=== PATIENT | female | born 1950 | race Caucasian/White ===

== ENCOUNTER → 2016-11-26 | Outpatient (CLI) | payer MEDICARE, OTHER ==
--- NOTE | 2016-11-26 12:27 | REPMRS ---
Patient History The patient states she had a clinical breast exam in October 2016. Patient is postmenopausal. Family history of prostate cancer in father at age 62 and unknown cancer in maternal aunt at age 60. Digital Mammo Screening Bilat: November 26, 2016 - Exam #: [id number] Bilateral CC and MLO view(s) were taken. Technologist: Racheal Curran, Technologist Prior study comparison: October 21, 2015, bilateral digital mammo screening bilat performed at [facility]. October 08, 2014, bilateral digital mammo screening bilat performed at [facility]. September 25, 2013, bilateral digital mammo screening bilat performed at [facility]. FINDINGS: There are scattered fibroglandular densities. There has been no change in the appearance of the mammogram from the prior studies. There is a mild amount of scattered fibroglandular density which is fairly symmetric. There is no interval development of dominant mass, architectural distortion, or clustered microcalcification suggestive of malignancy. ASSESSMENT: BI-RADS/ACR category 1 mammogram. Negative. Recommendation Routine screening mammogram in 1 year (for women over age 40). This mammogram was interpreted with the aid of an FDA-approved computer-aided dectection system. Electronically Signed By: Manny Cabrera MD 11/26/16 1150
== END ==
LOC: M RAD 10:17
PROVIDERS: ATTEND Internal Medicine
DX: Z12.31 Encounter for screening mammogram for malignant neoplasm of breast (principal)

== ENCOUNTER → 2017-12-30 | Outpatient (CLI) | payer MEDICARE, OTHER | LOC: M RAD 13:35 | DX: Z12.31 Encounter for screening mammogram for malignant neoplasm of breast (principal) | CPT/HCPCS: 77067 ==

== ENCOUNTER → 2019-01-31 | Outpatient (CLI) | payer MEDICARE, OTHER ==
--- NOTE | 2019-01-31 12:29 | REPMRS ---
Patient History The patient states she had a clinical breast exam in January 2019. Family history of prostate cancer at age 62 in father, unknown cancer at age 60 in maternal aunt. Patient states 3 lumps removed years ago from right breast. 3D TOMOSYNTHESIS WAS PERFORMED. Digital Mammo Screening Bilat: January 31, 2019 - Exam #: [id number] Bilateral CC and MLO view(s) were taken. Technologist: Cornelia Parker, Technologist Prior study comparison: December 30, 2017, bilateral digital mammo screening bilat performed at [facility]. November 26, 2016, bilateral digital mammo screening bilat performed at [facility]. FINDINGS: There are scattered fibroglandular densities. There has been no change in the appearance of the mammogram from the prior studies. There is a mild amount of residual fibroglandular tissue which is fairly symmetric. There is no interval development of dominant mass, architectural distortion, or clustered microcalcification suggestive of malignancy. Assessment: BI-RADS/ACR category 1 mammogram. Negative Mammogram. Recommendation Routine screening mammogram in 1 year (for women over age 40). This mammogram was interpreted with the aid of an FDA-approved computer-aided dectection system. Electronically Signed By: Ayush Bhakta MD 01/31/19 [id number]
== END ==
LOC: M RAD 09:04
PROVIDERS: ATTEND Internal Medicine
DX: Z12.31 Encounter for screening mammogram for malignant neoplasm of breast (principal); N60.19 Diffuse cystic mastopathy of unspecified breast

== ENCOUNTER → 2020-06-05 | Outpatient (CLI) | payer MEDICARE, BC ==
--- NOTE | 2020-06-29 11:30 | REPMRS ---
Patient History The patient states she had a clinical breast exam in 05/2020. Patient is postmenopausal. Family history of prostate cancer at age 62 in father, unknown cancer at age 60 in maternal aunt. Digital Woman Screen Mammo: June 05, 2020 - Exam #: [id number] Bilateral CC and MLO view(s) were taken. Technologist: Racheal Curran, Technologist Prior study comparison: January 31, 2019, bilateral digital mammo screening bilat, performed at [facility]. December 30, 2017, bilateral digital mammo screening bilat, performed at [facility]. November 26, 2016, bilateral digital mammo screening bilat, performed at [facility]. FINDINGS: There are scattered fibroglandular densities. The Volpara volumetric breast density category is:B. There has been no change in the appearance of the mammogram from the prior studies. There is a mild amount of scattered fibroglandular density which is fairly symmetric. There is no interval development of dominant mass, architectural distortion, or grouped microcalcification suggestive of malignancy. 3-D tomosynthesis shows no additional findings. Report was delayed due to a protracted computer network disruption experienced by this facility. Assessment: BI-RADS/ACR category 1 mammogram. Negative Mammogram. Recommendation Routine screening mammogram of both breasts in 1 year (for women over age 40). This patient's Lifetime Breast Cancer Risk is estimated at 3.0 %. This mammogram was interpreted with the aid of an FDA-approved computer-aided dectection system. Electronically Signed By: Manny Cabrera MD 06/29/20 [id number]
== END ==
LOC: M WHC 15:53
PROVIDERS: ATTEND Internal Medicine
DX: Z12.31 Encounter for screening mammogram for malignant neoplasm of breast (principal)

== ENCOUNTER 2021-02-13 06:45 | Day surgery (SDC) | payer MEDICARE, BC ==
[~2021-02-13] VITALS: Ht 165.1 cm; Wt 84.4 kg
[~2021-02-13 06:45] MED LIST: ACIP1TAB PO; ASPI81CH48 PO; ATEN50TA2 PO; ATOR1TAB21 PO; BASA100I SC; CELE1CAP4 PO; CEVI1CAP PO; GLIM2TAB4 PO; JANU100T PO; LIDOCAINE 1% MDV 20ML VIAL SQ PRN; VITMTA PO; ZYLO300T6 PO
[2021-02-13] MEDS ORDERED: ceFAZolin SOD 2 GM in IV 1 EA IV ONE (07:00)
[2021-02-13] MEDS ORDERED: LR 1,000 ML IV ONE (07:00)
[2021-02-13 07:43] LABS: HEMOGLOBIN 12.9 g/dl (12.0-15.5); MEAN CORPUSCULAR HEMOGLOBIN 31.6 pg (27.0-33.0); MEAN CORPUSCULAR HGB CONC 32.3 g/dl (32.0-36.5); PLATELET COUNT, AUTOMATED 319 10^3/uL (150-450); RED BLOOD COUNT 4.08 10^6/uL (4.00-5.40); WHITE BLOOD COUNT 8.1 10^3/uL (4.0-10.0)
--- NOTE | 2021-02-13 07:57 | REP ---
INDICATION: pre op room 17. COMPARISON: None. TECHNIQUE: AP portable chest with the patient sitting. FINDINGS: The lung alston are clear. Cardiac size is normal. The dionicio, mediastinum and skeletal structures are unremarkable. There is a dual chamber pacemaker. IMPRESSION: Essentially negative PA and lateral chest A dual chamber pacemaker is incidentally identified. <Electronically signed by Ayush Casiano > 02/13/21 0755
[2021-02-13 08:04] LABS: CALCIUM LEVEL 9.1 MG/DL (8.8-10.2); CREATININE FOR GFR 1.02 MG/DL (0.55-1.30); GLOMERULAR FILTRATION RATE 56.9 (>39); POTASSIUM SERUM 3.8 MEQ/L (3.5-5.1)
[2021-02-13] MEDS ORDERED: propofoL 500 MG/50 ML VIAL As Ordered ONE ×2 (08:18→08:20)
[2021-02-13] MEDS ORDERED: LIDOCAINE 2% 100MG/5ML SDV (FOR ANES.) As Ordered ONE (08:18)
[2021-02-13] MEDS ORDERED: fentaNYL 100 MCG/2 ML INJECTION (J3010) As Ordered ONE (08:18)
[2021-02-13] MEDS ORDERED: MIDAZOLAM INJ 2MG/2ML VIAL (J2250 PER 1MG) As Ordered ONE (08:19)
[2021-02-13] MEDS ORDERED: BUPIVACAINE HCL 0.5% 30 ML VIAL As Ordered ONE (08:36)
[2021-02-13] MEDS ORDERED: LIDOCAINE 2% MDV 20ML VIAL As Ordered ONE (08:36)
[2021-02-13] MEDS ORDERED: NEOSPORIN GU IRRIG 20 ML VIAL As Ordered ONE (08:36)
[2021-02-13] MEDS ORDERED: dexameTHASONE 4 MG/ML 1ML VIAL (J1100 PER 1MG) As Ordered ONE (08:36)
[2021-02-13] MEDS ORDERED: BACITRACIN PWD 50,000 UNITS VIAL As Ordered ONE (08:36)
[2021-02-13] MEDS ORDERED: LIDOCAINE 1% SDV 30ML VIAL As Ordered ONE (09:48)
[2021-02-13 11:15] VITALS: BP 148/68
[2021-02-13] MEDS ORDERED: ONDANSETRON 4MG/2ML VIAL IV PRN (11:20)
[2021-02-13] MEDS ORDERED: oxyCODONE 5MG TAB PO PRN (11:20)
[2021-02-13] MEDS ORDERED: LR 1,000 ML IV SCH (11:20)
[2021-02-13] MEDS ORDERED: METOCLOPRAMIDE INJ 10MG/2ML VIAL (J2765 PER 1) IV PRN (11:20)
--- NOTE | 2021-02-13 11:35 | REP ---
INDICATION: BUNIONECTOMY LEFT FOOT COMPARISON: None. TECHNIQUE: Three portable views left foot. FINDINGS: Surgical defects seen in the distal 1st metatarsal fixed by a metallic screw. There is a metallic pin extending vertically through the bones of the 2nd toe and into the head of the 2nd metatarsal. There appears to be a surgical defect in the distal aspect of the 2nd proximal phalanx. The osseous structures are well-aligned.There is inferior and posterior calcaneal spurring. IMPRESSION: Postsurgical changes with osseous structures well aligned. <Electronically signed by Ayush Bhakta > 02/13/21 [id number]
--- NOTE | 2021-02-13 13:44 | RO ---
OPERATIVE NOTE DATE OF OPERATION: 02/13/2021 PREOPERATIVE DIAGNOSES: 1. 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 2. Hammertoe deformity 2nd toe left foot. 3. Metatarsocuneiform exostosis left foot. 4. 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 POSTOPERATIVE DIAGNOSES: 1. 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 2. Hammertoe deformity 2nd toe left foot. 3. Metatarsocuneiform exostosis left foot. 4. 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 PROCEDURES PERFORMED: 1. Radu bunionectomy, internal screw fixation 3.0 mm x 20 mm x1. 2. Excision of metatarsocuneiform exostosis 1st and 2nd metatarsocuneiform joint left foot. 3. Proximal interphalangeal joint arthroplasty with external wire fixation 0.045 x1 left foot. 4. 2nd metatarsophalangeal joint capsulotomy. SURGEON: Jorge Loyd DPM GENERAL ENGINEERING TEACHER: None. ANESTHESIA: Local, MAC. HEMOSTASIS: Ankle pneumatic tourniquet at 200 mmHg for 81 minutes. ESTIMATED BLOOD LOSS: 1 mL. HARDWARE UTILIZED: Arthrex headless 3.0 x 20 mm compression screw and 0.045 Parviz wire. DESCRIPTION OF PROCEDURE: On 02/13/2021 this 70-year-old white female was taken from her hospital room to the operating room and placed on the operating table in the supine position. Following induction of IV sedation and local regional anesthesia the left lower extremity was prepped and draped in usual aseptic manner. Attention was directed to the patient's left foot. There was noted to be a metatarsocuneiform exostosis. At this time a 5 cm incision was placed centered over the 2nd metatarsocuneiform joint just medial to the deep peroneal artery. Incision was carried through the subcutaneous tissues to the fascia which was incised and the extensor hallucis brevis muscle and tendon was visualized and retracted in lateral direction. Periosteal incision was made over the 1st metatarsocuneiform base and periosteal dissection was then performed across the 1st and 2nd metatarsocuneiform joints in lateral direction and subperiosteal over the metatarsocuneiform joint medially. All dissection at this point was then at the level of bone. Utilizing curved osteotome and mallfrancisco and ronbreana the exostosis was debrided then rongeured and filed with handheld rasp. This removed the exostosis. Utilizing bone wax the raw cancellous surface was coated with bone wax and the wound was flushed with copious amounts of dilute Bacitracin, Neomycin and Polymyxin B solution. Deep closure was then obtained over the capsular structures with 2-0 Monocryl in simple interrupted type fashion. Subcutaneous tissues were coapted and maintained utilizing 4-0 Monocryl in simple interrupted type fashion, skin incision was coapted and maintained utilizing 5-0 Monocryl in continuous subcuticular type fashion. Attention was then directed to the bunion deformity where the following procedure was performed: RADU BUNIONECTOMY AND INTERNAL SCREW FIXATION 3.0 mm x 20 mm x1 left foot: Attention was directed to the patient's left foot where a 5 cm incision was placed over the 1st metatarsophalangeal joint medial to the extensor tendon. Linear capsulotomy was performed in the same plane as the original skin incision. The capsular and periosteal structures were dissected free in one continuous layer dorsally, medially and laterally thus creating a capsular periosteal type envelope. This allowed me to view the hypertrophied medial eminence of the 1st metatarsal which was osteotomized from distal to proximal [id number] exiting medial to the sesamoidal groove. A V-shaped osteotomy was then performed with long plantar and short dorsal wing created in distal metaphysis of the 1st metatarsal and this was transposed approximately one-quarter of the width of the shaft of the 1st metatarsal and fixated with a headless 3.0 x 20 mm cortical screw inserted in proximal dorsal to plantar somewhat lateral position. The screw crossed the osteotomy and did not penetrate the inferior cartilage under direct visualization. The osteotomy was noted to be stable in all three cardinal planes. The redundant cortical spike was osteotomized from dorsal to plantar [id number] exiting medial to sesamoidal groove. This was then rasped to a smooth contour with handheld rasp. The wound was flushed with copious amounts of dilute Bacitracin, Neomycin, and Polymyxin B solution. Utilizing 2-0 Monocryl the capsular structures were then coapted and maintained with simple interrupted suture. Subcutaneous tissues were coapted and maintained utilizing 4-0 Monocryl in simple interrupted type fashion. Skin incision was coapted and maintained utilizing 5-0 Monocryl in continuous subcuticular type fashion. Attention was then directed to the 2nd toe where the following procedure was performed: Proximal interphalangeal joint fusion with external wire fixation 0.045 x1 2nd toe right foot. Attention was directed to the 2nd toe where 2 cm incision was placed over the proximal interphalangeal joint. The incision was deepened through subcutaneous tissues. All crossing venous tributaries were identified, clamped, cut, ligated and electrocoagulated as necessary. Transverse tenotomy and capsulotomy was performed at the level of the proximal interphalangeal joint, medial and lateral collateral ligaments were sharply dissected free from the head of the proximal phalanx and utilizing a power saw an osteotomy was performed through the anatomical neck of the proximal phalanx from dorsal to plantar [id number]. The cartilage on the base of the middle phalanx was then osteotomized from dorsal to plantar [id number] and this was removed. There was still noted to be a dorsal contracture at the metatarsophalangeal joint and the toe was also noted to be medially deviated at the metatarsophalangeal joint. At this time a stab incision was then placed over the 2nd metatarsophalangeal joint and following procedure was performed: Capsulotomy 2nd metatarsophalangeal joint left foot. Dissection was then carried down to the tendinous structures and utilizing dissection through the proximal interphalangeal joint incision as well as the metatarsophalangeal joint incision the extensor tendon was freed and then brought proximally through the wound. With the extensor tendon out of the way a dorsal capsulotomy was performed as well as release of the medial aspect of the 2nd metatarsophalangeal joint. Additionally, the plantar plate was released with metatarsal elevator through the smaller metatarsophalangeal joint incision. The wound was then flushed with copious amounts of dilute Bacitracin, Neomycin and Polymyxin B solution. Utilizing a Parviz wire, wire was then driven through the middle and distal phalanx, retrograded into the proximal phalanx. Toe was placed in slightly overcorrected position with respect to the toe being slightly plantarflexed and laterally positioned and then the wire was driven across the metatarsophalangeal joint. The wire was cut and Jurgan ball was placed on the distal end of the toe. Attention was then directed toward closure where the extensor tendon was coapted and maintained utilizing 2-0 Monocryl in simple interrupted type fashion. Skin incision on the toe was coapted and maintained with 4-0 Prolene. The metatarsophalangeal joint capsulotomy incision was closed with 5-0 Monocryl in simple interrupted type fashion and skin was closed with 4-0 Prolene in simple interrupted type fashion. No postoperative steroid was utilized to control swelling. Compression was utilized so a compressive dressing was applied consisting of Adaptic, 4 x 4s, 4 x 4 splint, Juan Manuel, Kerlix and Coban. Ankle pneumatic tourniquet was rapidly deflated; instantaneous capillary filling time was noted digits 1 through 5 of the patient's left foot. The patient having apparently tolerated the surgical procedure well was taken from the OR to the recovery room for further monitoring by anesthesia department. Postoperative instructions were given upon discharge.
== END 2021-02-13 11:43 | disposition home or self-care (01) ==
LOC: M SDC 06:45
PROVIDERS: ATTEND Podiatrist
DX: M20.12 Hallux valgus (acquired), left foot (principal); M20.42 Other hammer toe(s) (acquired), left foot; M89.8X7 Other specified disorders of bone, ankle and foot; M24.575 Contracture, left foot; E11.9 Type 2 diabetes mellitus without complications; M10.9 Gout, unspecified; Z79.4 Long term (current) use of insulin; Z79.82 Long term (current) use of aspirin; Z79.899 Other long term (current) drug therapy; Z88.8 Allergy status to other drugs, medicaments and biological substances; Z88.2 Allergy status to sulfonamides; Z88.5 Allergy status to narcotic agent; Z95.0 Presence of cardiac pacemaker
CPT/HCPCS: 28122; 28270; 28285; 28296; 36415; 71045; 73630; 76000; 80048; 85027; 88300; 97116; C1713; J0690; J2250; J3010

== ENCOUNTER → 2021-06-15 | Outpatient (CLI) | payer MEDICARE, BC ==
[~2021-06-15] MED LIST changes: -LIDOCAINE 1% MDV 20ML VIAL SQ PRN
--- NOTE | 2021-06-15 15:41 | REPMRS ---
Patient History The patient states she had a clinical breast exam in May 2021. Patient is postmenopausal. Family history of prostate cancer at age 62 in father, unknown cancer at age 60 in maternal aunt. 3 benign excisional biopsies of the right breast, 1984. Patient states no breast complaints today. Patient has signed MRS History Sheet. Digital Woman Screen Mammo: June 15, 2021 - Exam #: [id number] Bilateral CC and MLO view(s) were taken. Technologist: Elis Flores, Technologist Prior study comparison: June 05, 2020, bilateral digital woman screen mammo performed at [facility]. January 31, 2019, bilateral digital mammo screening bilat, performed at [facility]. December 30, 2017, bilateral digital mammo screening bilat, performed at [facility]. FINDINGS: There are scattered fibroglandular densities. The Volpara volumetric breast density category is:B. There has been no change in the appearance of the mammogram from the prior studies. There is a mild amount of scattered fibroglandular density which is fairly symmetric. There is no interval development of dominant mass, architectural distortion, or grouped microcalcification suggestive of malignancy. 3-D tomosynthesis shows no additional findings. Assessment: BI-RADS/ACR category 1 mammogram. Negative Mammogram. Recommendation Routine screening mammogram of both breasts in 1 year (for women over age 40). This patient's [facility] Lifetime Breast Cancer Risk is estimated at 2.8 %. This mammogram was interpreted with the aid of an FDA-approved computer-aided dectection system. Electronically Signed By: Manny Cabrera MD 06/15/21 [id number]
== END ==
LOC: M WHC 12:47
PROVIDERS: ATTEND Internal Medicine
DX: Z12.31 Encounter for screening mammogram for malignant neoplasm of breast (principal); Z78.0 Asymptomatic menopausal state; Z80.42 Family history of malignant neoplasm of prostate; Z98.890 Other specified postprocedural states

== ENCOUNTER → 2022-07-20 | Outpatient (CLI) | payer MEDICARE, BC | LOC: M WHC 13:12 | PROVIDERS: ATTEND Internal Medicine | DX: Z12.31 Encounter for screening mammogram for malignant neoplasm of breast (principal) ==

== ENCOUNTER → 2022-09-08 | Outpatient (CLI) | payer MEDICARE, BC ==
[2022-09-08 18:05] LABS: PLATELET COUNT, AUTOMATED 324 10^3/uL (150-450)
[2022-09-08 18:21] LABS: INR 1.01; PROTHROMBIN TIME 13.5 SECONDS (12.5-14.5)
[2022-09-08 18:22] LABS: PARTIAL THROMBOPLASTIN TIME 24.6 SECONDS (24.8-34.2)
== END ==
LOC: M PLALAB 14:42
PROVIDERS: ATTEND Physician Assistant
DX: M48.062 Spinal stenosis, lumbar region with neurogenic claudication (principal)

== ENCOUNTER → 2022-10-09 | Day surgery (SDC) | payer MEDICARE, BC ==
[~2022-10-09] VITALS: Ht 165.1 cm; Wt 80.7 kg
[~2022-10-09] MED LIST changes: +ALLO300T2 PO; +ESTR0.1C5 VG; +GLIM4TAB5 PO; +GLUC1TAB58 PO; +HOME MED LIST COMPLETE! XX SCH; +HYDR12.55 PO; +JARD1TAB3 PO; +LIDOCAINE 1% SDV 30ML VIAL As Ordered ONE; +LIDOCAINE 2% 100MG/5ML SDV (FOR ANES.) As Ordered ONE; +LISI10TA22 PO; +MIDAZOLAM INJ 2MG/2ML VIAL (J2250 PER 1MG) As Ordered ONE; +NEOSPORIN TOP OINT 15GM As Ordered ONE; +NS 1,000 ML IV SCH; +PHENYLEPHRINE 10MG/ML 1ML VIAL As Ordered ONE; +PHENYLephrine 500MCG 5ML (100MCG/ML) SYRINGE As Ordered ONE; +ceFAZolin SOD 2 GM in IV 1 EA IV ONE; +fentaNYL 100 MCG/2 ML INJECTION As Ordered ONE; +propofoL 500 MG/50 ML VIAL As Ordered ONE
[2022-10-09 10:15] LABS: BASO % 0.3 % (0.0-1.0); EOS # 0.4 10^3/uL (0.0-0.5); EOS % 3.8 % (0.0-3.0); HEMATOCRIT 40.6 % (36.0-47.0); HEMOGLOBIN 13.2 g/dl (12.0-15.5); LYMPH # 2.5 10^3/uL (1.5-5.0); LYMPH % 26.2 % (24.0-44.0); MEAN CORPUSCULAR HEMOGLOBIN 31.4 pg (27.0-33.0); MEAN CORPUSCULAR HGB CONC 32.5 g/dl (32.0-36.5); MEAN CORPUSCULAR VOLUME 96.7 fl (80.0-96.0); MONO # 0.7 10^3/uL (0.0-0.8); MONO % 7.7 % (2.0-8.0); NEUTROPHILS % 61.8 % (36.0-66.0); PLATELET COUNT, AUTOMATED 342 10^3/uL (150-450); WHITE BLOOD COUNT 9.6 10^3/uL (4.0-10.0)
[2022-10-09 10:30] LABS: INR 0.99; PROTHROMBIN TIME 13.2 SECONDS (12.5-14.5)
[2022-10-09 10:42] LABS: CALCIUM LEVEL 9.4 MG/DL (8.3-10.6); GLOMERULAR FILTRATION RATE 57.9 (>39); POTASSIUM SERUM 4.3 MMOL/L (3.5-5.1)
[2022-10-09 10:50] LABS: RSV AMPLIFICATION NEGATIVE (NEGATIVE)
[2022-10-09 15:28] VITALS: BP 109/55
== END | disposition home or self-care (01) ==
LOC: M ED 09:00 → M SDC 11:16
PROVIDERS: ATTEND Internal Medicine Cardiovascular Disease
DX: Z45.09 Encounter for adjustment and management of other cardiac device (principal); I10 Essential (primary) hypertension; E11.9 Type 2 diabetes mellitus without complications; E78.5 Hyperlipidemia, unspecified; M10.9 Gout, unspecified; Z79.899 Other long term (current) drug therapy; Z79.4 Long term (current) use of insulin; Z79.84 Long term (current) use of oral hypoglycemic drugs; Z79.82 Long term (current) use of aspirin; Z91.018 Allergy to other foods; Z88.0 Allergy status to penicillin; Z88.5 Allergy status to narcotic agent; Z88.2 Allergy status to sulfonamides
CPT/HCPCS: 33228; 71045; 80048; 85025; 85610; 86850; 86900; 86901; 87631; 93005; 94760; 96360; 96361; 99285; C1785; J0690; J2250; J2370; J3010

== ENCOUNTER → 2023-07-25 | Outpatient (CLI) | payer MEDICARE, BC ==
[~2023-07-25] MED LIST changes: -HOME MED LIST COMPLETE! XX SCH; -LIDOCAINE 1% SDV 30ML VIAL As Ordered ONE; -LIDOCAINE 2% 100MG/5ML SDV (FOR ANES.) As Ordered ONE; -MIDAZOLAM INJ 2MG/2ML VIAL (J2250 PER 1MG) As Ordered ONE; -NEOSPORIN TOP OINT 15GM As Ordered ONE; -NS 1,000 ML IV SCH; -PHENYLEPHRINE 10MG/ML 1ML VIAL As Ordered ONE; -PHENYLephrine 500MCG 5ML (100MCG/ML) SYRINGE As Ordered ONE; -ceFAZolin SOD 2 GM in IV 1 EA IV ONE; -fentaNYL 100 MCG/2 ML INJECTION As Ordered ONE; -propofoL 500 MG/50 ML VIAL As Ordered ONE
== END ==
LOC: M WHC 12:28
PROVIDERS: ATTEND Nurse Practitioner Family
DX: Z12.31 Encounter for screening mammogram for malignant neoplasm of breast (principal)

== ENCOUNTER → 2024-08-13 | Outpatient (CLI) | payer MEDICARE, BC ==
[~2024-08-13] MED LIST changes: -ACIP1TAB PO; +RABE20TA88 PO
== END ==
LOC: M WHC 10:34
PROVIDERS: ATTEND Nurse Practitioner Family
DX: Z12.31 Encounter for screening mammogram for malignant neoplasm of breast (principal)

== ENCOUNTER → 2025-08-15 | Outpatient (CLI) | payer MEDICARE, BC | LOC: M WHC 13:29 | PROVIDERS: ATTEND Nurse Practitioner Family | DX: Z12.31 Encounter for screening mammogram for malignant neoplasm of breast (principal); R92.313 Mammographic fatty tissue density, bilateral breasts ==